=== PATIENT | female | born 1965 | race Caucasian/White ===

== ENCOUNTER 2018-07-20 11:20 | Emergency (ER) | payer OTHER ==
[2018-07-20] MEDS ORDERED: Iohexol 240 (50 ml) PO STA (13:38)
[2018-07-20] MEDS ORDERED: Sodium Chloride 0.9% 1,000 ML IV ONE (13:38)
[2018-07-20] MEDS ORDERED: Iohexol 240 (50 ml) ONE (13:47)
[2018-07-20 13:53] LABS: HCG,QUALITATIVE URINE NEGATIVE (NEGATIVE)
[2018-07-20 13:57] LABS: SQUAMOUS EPITHIAL 1 /hpf (0-5); URINE BILIRUBIN NEGATIVE (NEGATIVE); URINE BLOOD NEGATIVE (NEGATIVE); URINE CLARITY Clear (Clear); URINE COLOR Yellow (YELLOW); URINE GLUCOSE (UA) NORMAL (Normal); URINE LEUKOCYTE ESTERASE NEG Leu/uL (Negative); URINE PROTEIN NEGATIVE (NEGATIVE); URINE UROBILINOGEN NORMAL mg/dL (0.2-1.0)
[2018-07-20 14:00] LABS: BASO % 0.4 % (0.0-2.0); EOS # 0.1 K/uL (0.0-0.7); EOS % 2.3 % (0.0-4.0); HEMOGLOBIN 12.3 g/dL (11.0-16.0); LYMPH # 1.9 K/uL (1.0-4.3); LYMPH % 35.6 % (20.0-40.0); MEAN CELL VOLUME 91.4 fL (81.0-99.0); MEAN CORPUSCULAR HEMOGLOBIN 30.7 pg (27.0-31.0); MEAN CORPUSCULAR HGB CONC 33.7 g/dL (33.0-37.0); MONO # 0.4 K/uL (0.0-0.8); MONO % 7.6 % (0.0-10.0); NEUT # 2.9 K/uL (1.8-7.0); NEUT % 54.1 % (50.0-75.0); RED CELL DISTRIBUTION WIDTH 14.1 % (11.5-14.5); WHITE BLOOD COUNT 5.4 K/uL (4.8-10.8)
--- NOTE | 2018-07-20 14:05 | C.PDOC ---
History Of Present Illness 53 year old female presents to ED with complaint of right lower quadrant abdominal pain for the past 2 weeks and burning epigastric pain for the past week. Patient also complaint of vomiting and states that she had 2 episodes of watery diarrhea at work today. She states that she also feels bloated. Patient states that she has been taking omeprazole without relief. She denies fever, chills, diaphoresis, bloody stools, hematuria, and dysuria. Raw Sampler: #[id number]. Time Seen by Provider: 07/20/18 12:47 Chief Complaint (Nursing): Abdominal Pain History Per: Patient, Tsa Screener (ID #[id number]) History/Exam Limitations: no limitations Onset/Duration Of Symptoms: Other (2 weeks) Current Symptoms Are (Timing): Still Present Location Of Pain/Discomfort: RLQ Quality Of Discomfort: "Pain" Associated Symptoms: Nausea, Vomiting, Diarrhea. denies: Fever, Chills, Urinary Symptoms Exacerbating Factors: None Alleviating Factors: None Past Medical History Reviewed: Historical Data, Nursing Documentation, Vital Signs Vital Signs: Last Vital Signs Temp 98.1 F 07/20/18 11:41 Pulse 67 07/20/18 11:41 Resp 20 07/20/18 11:41 BP 122/76 07/20/18 11:41 Pulse Ox 100 07/20/18 11:41 - Medical History PMH: No Chronic Diseases Surgical History: Cholecystectomy Family History: States: Unknown Family Hx - Social History Hx Alcohol Use: No Hx Substance Use: No - Immunization History Hx Tetanus Toxoid Vaccination: No Hx Influenza Vaccination: Yes Hx Pneumococcal Vaccination: No Review Of Systems Constitutional: Negative for: Fever, Chills, Weakness Gastrointestinal: Positive for: Nausea, Vomiting, Abdominal Pain (right lower quadrant), Diarrhea. Negative for: Hematochezia Genitourinary: Negative for: Dysuria, Hematuria Neurological: Negative for: Weakness, Numbness, Dizziness Physical Exam - Physical Exam Appears: Well, Non-toxic, No Acute Distress Skin: Normal Color, Warm, Dry Head: Atraumatic, Normacephalic Neck: Normal ROM, Supple Chest: Symmetrical, No Deformity Cardiovascular: Rhythm Regular, No Murmur Respiratory: No Accessory Muscle Use, No Rales, No Rhonchi, No Wheezing Gastrointestinal/Abdominal: Tenderness (right lower quadrant and epigasric area), Other (right upper quadrant scar from cholecystectomy) Extremity: Capillary Refill (<2 seconds) Neurological/Psych: Oriented x3, Normal Speech, Normal Cognition ED Course And Treatment - Laboratory Results Result Diagrams: 07/20/18 13:55 07/20/18 13:55 Lab Results: Urine HCG, Qual Negative (NEGATIVE) 07/20/18 13:47 Urine HCG, Qual Negative (NEGATIVE) 07/20/18 13:47 O2 Sat by Pulse Oximetry: 100 (in RA) - CT Scan/US Abdomen/Pelvis CT Other Rad Studies (CT/US): Interpreted By Me, Read By Radiologist CT/US Interpretation: IMPRESSION: Mild wall thickening and inflammatory changes involving the sigmoid colon consistent with acute diverticulitis. Moderate diffuse constipation. Additional findings as above. Medical Decision Making Medical Decision Making: Impression: 53 year old female presents to ED with complaint of right lower quadrant abdominal pain for the past 2 weeks and burning epigastric pain for the past week. Plan: Abdomen/Pelvis CT ordered for patient Labs ordered with CMP, CBC, and UA Patient given pepcid IVP and IV fluids 1640 pt found to have constipation and diverticulitis on ct scan. pt has no white count, no fever. no vomiting.will give pt dose antibiotics here in ed and d/c home with cipro and flagyl, miralax recommended for constipation. clinic follow up next week recommended. explained to patient in congolese Disposition Counseled Patient/Family Regarding: Studies Performed, Diagnosis, Need For Followup, Rx Given - Disposition Referrals: [facility] [Outside] Disposition: HOME/ ROUTINE Disposition Time: 16:46 Condition: IMPROVED Additional Instructions: Regan antibiticos segn lo prescrito hasta que est hecho. No tome alcohol con estos medicamentos. Tylenol o MoTrin para el dolor si es necesario. Beber jugo de ciruela para el estreimiento; Puede usar Miralax y / o Metamucil, beber ms agua, aumentar la fibra. Seguimiento en clnica medica la prxima semana. Regrese a la leighann de emergencias para los sntomas peores. Take antibiotics as prescribed until done. Do not drink alcohol with these medi cines. Tylenol or MoTrin for pain if needed. Drink prune juice for constipation; can use Miralax and/or Metamucil, drink more water, increase fiber. Follow up in medical clinic next week. Return to ER for worse symptoms. 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 (Neena Presley) - Scribe Statement The provider has reviewed the documentation as recorded by the Scribe (Neena Presley) All medical record entries made by the Scribe were at my direction and personally dictated by me. I have reviewed the chart and agree that the record accurately reflects my personal performance of the history, physical exam, medical decision making, and the department course for this patient. I have also personally directed, reviewed, and agree with the discharge instructions and disposition.
[2018-07-20 14:11] LABS: ALB/GLOB RATIO 1.4 (1.0-2.1); ALBUMIN 4.5 g/dL (3.5-5.0); ALT/SGPT 24 U/L (9-52); AST/SGOT 34 U/L (14-36); BLOOD UREA NITROGEN 14 mg/dL (7-17); CALCIUM 9.7 mg/dl (8.6-10.4); GFR NON-AFRICAN AMERICAN > 60; LIPASE 47 U/L (23-300)
[2018-07-20] MEDS ORDERED: Iodixanol 320 MG/ML 100 ML BOTTLE IV ONE (14:57)
[2018-07-20 16:06] VITALS: RESP 18
--- NOTE | 2018-07-20 16:20 | CT ---
PROCEDURE: CT Abdomen and Pelvis with oral and IV contrast. HISTORY: abd pain COMPARISON: None available TECHNIQUE: Contiguous axial images of the abdomen and pelvis. Oral and IV contrast was administered. Coronal and Sagittal reformats generated and reviewed. Contrast dose: 100 mL Visipaque 320 IV Radiation dose: Total exam DLP = 761.88 mGy-cm. This CT exam was performed using one or more of the following dose reduction techniques: Automated exposure control, adjustment of the mA and/or kV according to patient size, and/or use of iterative reconstruction technique. FINDINGS: LOWER THORAX: No visible consolidation, pleural effusion, or pneumothorax. LIVER: Unremarkable. GALLBLADDER AND BILE DUCTS: Not visualized; either resected or decompressed. Surgical clips are not evident. PANCREAS: Unremarkable. SPLEEN: Unremarkable. ADRENALS: Unremarkable. KIDNEYS AND URETERS: The kidneys enhance symmetrically. No hydronephrosis or obstructing renal calculus. BLADDER: The urinary bladder appears unremarkable. REPRODUCTIVE: Uterus is present. APPENDIX: The appendix appears within normal limits of caliber. No secondary signs of acute appendicitis. BOWEL: The stomach is nondistended. The bowel loops appear within normal limits of caliber without evidence of intestinal obstruction. Moderate diffuse constipation. Wall thickening and inflammatory changes involving the sigmoid colon consistent with acute diverticulitis. PERITONEUM: No significant free fluid. No definite free air. LYMPH NODES: No bulky lymphadenopathy identified. VASCULATURE: No aortic aneurysm. No atherosclerotic calcification or mural plaque present. BONES: Degenerative changes. OTHER FINDINGS: None. IMPRESSION: Mild wall thickening and inflammatory changes involving the sigmoid colon consistent with acute diverticulitis. Moderate diffuse constipation. Additional findings as above.
[2018-07-20 17:14] VITALS: BP 112/68; PULSE 78; TEMP 98
[2018-07-20 17:38] VITALS: O2SAT 100
== END 2018-07-20 17:15 | disposition home or self-care (01) ==
LOC: C.ER 11:20
DX: K57.32 Diverticulitis of large intestine without perforation or abscess without bleeding (principal); K29.70 Gastritis, unspecified, without bleeding
CPT/HCPCS: 74177; 80053; 81001; 83690; 84703; 85025; 96361; 96374; 99285; J7030; Q9966; Q9967

== ENCOUNTER 2018-09-02 14:22 | Outpatient (CLI) | payer OTHER | END 2018-09-02 14:23 | disposition home or self-care (01) | LOC: C.CTH 14:22 | DX: K57.32 Diverticulitis of large intestine without perforation or abscess without bleeding (principal) ==